=== PATIENT | female | born 1965 | race Caucasian/White ===

== ENCOUNTER → 2017-01-18 | Outpatient (CLI) | payer BC ==
[~2017-01-18] MED LIST: PRILOSEC 20MG20 MG PO; SUPRENZA15 MG; SYNTHROID 0.0.025 MG PO
== END ==
LOC: MC.RAD 07:51
DX: Z12.31 Encounter for screening mammogram for malignant neoplasm of breast (principal); D24.2 Benign neoplasm of left breast; D24.1 Benign neoplasm of right breast

== ENCOUNTER → 2017-02-15 | Outpatient (REF) | LOC: WSOH 08:00 | DX: Z02.89 Encounter for other administrative examinations (principal) ==

== ENCOUNTER → 2018-01-24 | Outpatient (CLI) | payer BC | LOC: MC.RAD 01-20 07:00 | DX: Z12.31 Encounter for screening mammogram for malignant neoplasm of breast (principal) ==

== ENCOUNTER → 2019-01-24 | Outpatient (CLI) | payer BC | LOC: MC.RAD 07:46 | DX: Z12.31 Encounter for screening mammogram for malignant neoplasm of breast (principal) ==

== ENCOUNTER → 2019-12-27 | Outpatient (CLI) | payer BC | LOC: MC.RAD 10:58 | DX: L29.9 Pruritus, unspecified (principal) | CPT/HCPCS: G0279 ==

== ENCOUNTER → 2020-12-29 | Outpatient (CLI) | payer BC | LOC: COL.RAD 07:34 | DX: M25.551 Pain in right hip (principal) | CPT/HCPCS: J3301; Q9967 ==

== ENCOUNTER → 2021-05-29 | Outpatient (CLI) | payer BC | LOC: MC.RAD 07:00 | DX: Z12.31 Encounter for screening mammogram for malignant neoplasm of breast (principal) ==

== ENCOUNTER 2021-12-11 06:50 | Day surgery (SDC) | payer BC ==
[~2021-12-11] VITALS: Ht 170.2 cm; Wt 83.1 kg
[2021-12-11 07:23] VITALS: BP 142/82; PULSE 71; TEMP 97.7
[2021-12-11] MEDS ORDERED: MULTIPLE VITAMI1 TA5 PO (07:40)
[2021-12-11] MEDS ORDERED: VITAMIN B12 1541 TAB PO (07:41)
[2021-12-11] MEDS ORDERED: BLACK COHOSH40 MG PO (07:42)
[2021-12-11] MEDS ORDERED: GNC L-ARGININE500 MG PO (07:42)
[2021-12-11] MEDS ORDERED: THE MEDICINE S200 M2 PO (07:43)
[2021-12-11] MEDS ORDERED: MAGNESIUM200 MG PO (07:45)
[2021-12-11] MEDS ORDERED: VITAMIN D 400400 IU PO (07:47)
[2021-12-11] MEDS ORDERED: ACIDOPHILIS (07:48)
[2021-12-11] MEDS ORDERED: VITAMIN C500 MG (07:48)
[2021-12-11] MEDS ORDERED: INVIGOFLEX D1500 MG PO (07:49)
[2021-12-11] MEDS ORDERED: MASON NATURAL1200 MG PO (07:50)
[2021-12-11] MEDS ORDERED: PHARMASSURE ZIN50 MG PO (07:50)
[2021-12-11 08:55] VITALS: BP 92/74; PULSE 64; TEMP 97.2
--- NOTE | 2021-12-11 08:55 | NUR ---
Patient arrived from [facility] suite and ambulated from cart to chair without difficulty. Patient is alert and oriented x3. Vitals obtained. Report obtained. Patient requested ice water to drink. [facility] is at bedside.
[2021-12-11 09:10] VITALS: BP 109/71; PULSE 60
--- NOTE | 2021-12-11 09:10 | NUR ---
Patient is tolerating her ice water well. Denies neusea. No vomiting. Vitals obtained. The patient requested a warm muffin to eat. Will continue to monitor per intervals.
[2021-12-11 09:25] VITALS: BP 116/38; PULSE 65
--- NOTE | 2021-12-11 09:25 | NUR ---
Patient is tolerating her muffin well. Denies neusea. No vomiting. IV was discontined due to impending discharge. Catheter tip intact. No redness or swelling note. Patient denied needing assistance changing. The patient states her ride is downstairs.
--- NOTE | 2021-12-11 09:30 | NUR ---
Discharge instructions and educational material was reviewed at this time. Patient verbalized understanding and signed the related paperwork. Patient denied having any questions or concerns. Patient denied needing assistance changing.
--- NOTE | 2021-12-11 09:40 | NUR ---
Patient was escorted out to the patient entrence by [facility]. The patient has her personal belongings and discharge packet in hand. The patient was transferred into the care of her friend Lety, who is present to drive.
== END 2021-12-11 09:40 | disposition home or self-care (01) ==
LOC: SDCO 06:50
DX: Z12.11 Encounter for screening for malignant neoplasm of colon (principal); D12.3 Benign neoplasm of transverse colon; K64.0 First degree hemorrhoids; K62.89 Other specified diseases of anus and rectum; K92.1 Melena; K21.9 Gastro-esophageal reflux disease without esophagitis; G47.33 Obstructive sleep apnea (adult) (pediatric); E07.9 Disorder of thyroid, unspecified; E03.9 Hypothyroidism, unspecified; E78.5 Hyperlipidemia, unspecified; Z90.710 Acquired absence of both cervix and uterus; Z98.51 Tubal ligation status; Z79.890 Hormone replacement therapy; Z79.899 Other long term (current) drug therapy; Z83.3 Family history of diabetes mellitus
CPT/HCPCS: J2704

== ENCOUNTER → 2022-06-11 | Outpatient (CLI) | payer BC ==
[~2022-06-11] MED LIST changes: +ACIDOPHILIS; +BLACK COHOSH40 MG PO; +GNC L-ARGININE500 MG PO; +INVIGOFLEX D1500 MG PO; +MAGNESIUM200 MG PO; +MASON NATURAL1200 MG PO; +MULTIPLE VITAMI1 TA5 PO; +PHARMASSURE ZIN50 MG PO; +THE MEDICINE S200 M2 PO; +VITAMIN B12 1541 TAB PO; +VITAMIN C500 MG; +VITAMIN D 400400 IU PO
== END ==
LOC: MC.RAD 07:16
DX: Z12.31 Encounter for screening mammogram for malignant neoplasm of breast (principal)